=== PATIENT | male | born 1995 | race Hispanic/Latino ===

== ENCOUNTER 2017-04-03 17:52 | Emergency (ER) | payer SELFPAY ==
[~2017-04-03] VITALS: Ht 182.9 cm; Wt 133.8 kg
[2017-04-03] MEDS ORDERED: ACETAMINOPHEN 325 MG TAB PO ONE (18:45)
--- NOTE | 2017-04-03 19:41 | Diagnostic Imaging Report ---
EXAMINATION: CHEST SINGLE (PORTABLE) INDICATION: \S\chest pain \[id number] \S\1900 \S.br\ COMPARISON: None FINDINGS: AP view TUBES and LINES: None. LUNGS: Lungs are well inflated. Lungs are clear. There is no evidence of pneumonia or pulmonary edema. PLEURA: No pleural effusion or pneumothorax. HEART AND MEDIASTINUM: The cardiomediastinal silhouette is unremarkable. BONES AND SOFT TISSUES: No acute osseous lesion. Soft tissues are unremarkable. UPPER ABDOMEN: No free air under the diaphragm. IMPRESSION: No acute thoracic abnormality. Signed by: DR. Trenton Ortega MD on 04/03/2017 7:38 PM
[2017-04-03 22:32] VITALS: BP 130/83
== END 2017-04-03 22:36 | disposition home or self-care (01) ==
LOC: ER 17:52
DX: J10.1 Influenza due to other identified influenza virus with other respiratory manifestations (principal)
CPT/HCPCS: 71010; 87400; 99282

== ENCOUNTER 2019-04-24 20:46 | Emergency (ER) | payer OTHER ==
[~2019-04-24] VITALS: Ht 182.9 cm; Wt 199.6 kg
--- OUTSIDE RECORDS SUMMARY | 2019-04-24 20:48 | XMS REPORT ---
Author Author [facility] Address Unknown Phone Unavailable Care Team Providers Care Inside Sales Executive Name Role Phone Cesar MCCLAIN Unavailable Unavailable Problems This patient has no known problems. Allergies, Adverse Reactions, Alerts This patient has no known allergies or adverse reactions. Medications This patient has no known medications. Results Test Description Test Time Test Comments Text Results Atomic Results Result Comments CHEST SINGLE (PORTABLE) [place] [address] Patient Name: VÍCTOR RAZO MR #: [id number] : 1995 Age/Sex: 21/M Req #: [id number] Adm Physician: Ordered by: FELIPE MCCLAIN MD Report #: [id number] Location: ER Room/Bed: Procedure: [id number] DX/CHEST SINGLE (PORTABLE) Exam Date: 04/03/17 Exam Time: 1900 REPORT STATUS: Signed EXAMINATION: CHEST SINGLE (PORTABLE) INDICATION: COMPARISON: None FINDINGS: AP view TUBES and LINES: None. LUNGS: Lungs are well inflated. Lungs are clear. There is no evidence of pneumonia or pulmonary edema. PLEURA: No pleural effusion or pneumothorax. HEART AND MEDIASTINUM: The cardiomediastinal silhouette is unremarkable. BONES AND SOFT TISSUES: No acute osseous lesion. Soft tissues are unremarkable. UPPER ABDOMEN: No free air under the diaphragm. IMPRESSION: No acute thoracic abnormality. Signed by: DR. Trenton Acevedo MD on 04/03/2017 7:38 PM Dictated By: TRENTON ACEVEDO MD 37 Transcribed By: SHERRELL on 04/03/171937 COPY TO: FELIPE MCCLAIN MD
[2019-04-24] MEDS ORDERED: HYDROCODONE/APAP 7.5MG-325MG 1 EA TAB PO STA (20:54)
[2019-04-24] MEDS ORDERED: LIDOCAINE HCL 1% LOCAL INJ 20 ML VIAL INJ ONE (21:00)
--- NOTE | 2019-04-24 21:05 | NUR ---
Patient states he does have a history of HTN and has not taken his Losartan 25mg p.o. in over a week. GIACOMO Schultz notified.
[2019-04-24] MEDS ORDERED: CLONIDINE HCL 0.1 MG TAB PO ONE (21:15)
--- NOTE | 2019-04-24 21:41 | Diagnostic Imaging Report ---
Hand Complete CPT code: 67155 Indication:Dog bite Technique: Three views of the right hand obtained Comparison: None. Findings: Distal radius and ulna appear intact. Carpal bones appear generally well aligned. The digits are intact and normally aligned. No focal osseous lesions. No radiopaque foreign bodies in the soft tissues. IMPRESSION: No evidence for displaced fracture or current dislocation of the hand. Signed by: Dr. Chadd Hay MD on 04/24/2019 9:39 PM
[2019-04-24] MEDS ORDERED: AUGMENTIN 875-1 EACH PO (22:23)
[2019-04-24] MEDS ORDERED: TYLENOL WITH C1 EACH PO (22:23)
[2019-04-24] MEDS ORDERED: TETANUS/DIPHTHERIA TOX ADULT 0.5 ML SYR IM ONE (22:30)
[2019-04-24 22:44] VITALS: BP 140/76
== END 2019-04-24 22:49 | disposition home or self-care (01) ==
LOC: ER 20:46
DX: S60.371A Other superficial bite of right thumb, initial encounter (principal); S60.571A Other superficial bite of hand of right hand, initial encounter; W54.0XXA Bitten by dog, initial encounter; Y92.009 Unspecified place in unspecified non-institutional (private) residence as the place of occurrence of the external cause; Z23 Encounter for immunization; E66.9 Obesity, unspecified; Z68.43 Body mass index [BMI] 50.0-59.9, adult; I10 Essential (primary) hypertension
CPT/HCPCS: 12001; 73130; 90471; 90714; 99283; J2001